=== PATIENT | female | born 1975 | race Two or more races ===

== ENCOUNTER → 2018-02-17 | Outpatient (REF) ==
[2018-02-17 18:38] LABS: HCG, SERUM QUANTITATIVE < 1.0 MIU/ML
== END ==
LOC: M LAB REF 17:44
DX: N97.9 Female infertility, unspecified (principal)

== ENCOUNTER 2018-08-04 22:57 | Emergency (ER) | payer OTHER ==
[2018-08-05] MEDS: METOCLOPRAMIDE INJ 10MG/2ML VIAL (J2765) IV ×2 (00:08)
[2018-08-05] MEDS: diphenhydrAMINE INJ 50MG/ML VIAL (J1200) IV ×2 (00:08)
[2018-08-05] MEDS: NS 1,000 ML IV ×2 (00:08)
[2018-08-05] MEDS: KETOROLAC 30 MG/ML VIAL (J1885) IV ×2 (00:08)
== END 2018-08-05 02:41 | disposition home or self-care (01) ==
LOC: M ED 22:57
DX: G43.909 Migraine, unspecified, not intractable, without status migrainosus (principal)
CPT/HCPCS: J1200

== ENCOUNTER → 2018-11-10 | Outpatient (CLI) | payer OTHER ==
[2018-11-13 08:54] LABS: CONTROL LINE HPYORI INT CTR LINE PRESENT; H PYLORI QUALITATIVE IgG NEGATIVE (NEGATIVE)
[2018-11-14 08:06] LABS: IGASUB3 34.4 mg/dL (13.4-97.9); IgA SERUM (part of Subclasses) 145 mg/dL (87-352)
[2018-11-14 08:06] LABS: TISSUE TRANSGLUTAMINASE IgA <2 U/mL (0-3)
== END ==
LOC: M LAB 14:50
DX: K62.5 Hemorrhage of anus and rectum (principal)
CPT/HCPCS: 82784

== ENCOUNTER 2018-12-15 06:52 | Day surgery (SDC) | payer OTHER ==
[~2018-12-15] VITALS: Ht 165.1 cm; Wt 78.0 kg
[~2018-12-15 06:52] MED LIST: D 50CAP PO; FLON1SPR; NS 1,000 ML IV ONE; PANT40TA3 PO; PROZ20CA11 PO; VITMTA PO; ZYRT10CA5 PO
[2018-12-15] MEDS ORDERED: LIDOCAINE 2% INJ 100 MG/5 ML SDV (FOR ANES.) As Ordered ONE (07:03)
[2018-12-15] MEDS ORDERED: PROPOFOL 200 MG/20 ML VIAL As Ordered ONE ×2 (07:03→09:10)
--- NOTE | 2018-12-15 09:02 | ROOR ---
Patient Name: Lali Alvarenga Procedure Date: 12/15/2018 8:28 AM Date of : 1975 Age: 43 Room: [facility] Gender: Female Note Status: Finalized Procedure: Colonoscopy Indications: Hematochezia Providers: Ed Scherer MD Referring MD: FILIBERTO DE LOS SANTOS MD Requesting Provider: Medicines: Monitored Anesthesia Care Complications: No immediate complications. Procedure: Pre-Anesthesia Assessment: - Prior to the procedure, a History and Physical was performed, and patient medications and allergies were reviewed. The patient is competent. The risks and benefits of the procedure and the sedation options and risks were discussed with the patient. All questions were answered and informed consent was obtained. Patient identification and proposed procedure were verified by the physician, the nurse and the anesthesiologist in the procedure room. Mental Status Examination: alert and oriented. Airway Examination: normal oropharyngeal airway and neck mobility. Respiratory Examination: clear to auscultation. CV Examination: normal. Prophylactic Antibiotics: The patient does not require prophylactic antibiotics. Prior Anticoagulants: The patient has taken no previous anticoagulant or antiplatelet agents. ASA Grade Assessment: II - A patient with mild systemic disease. After reviewing the risks and benefits, the patient was deemed in satisfactory condition to undergo the procedure. The anesthesia plan was to use monitored anesthesia care (MAC). Immediately prior to administration of medications, the patient was re-assessed for adequacy to receive sedatives. The heart rate, respiratory rate, oxygen saturations, blood pressure, adequacy of pulmonary ventilation, and response to care were monitored throughout the procedure. The physical status of the patient was re-assessed after the procedure. The Colonoscope was introduced through the anus and advanced to the terminal ileum, with identification of the appendiceal orifice and IC valve. The colonoscopy was performed without difficulty. The patient tolerated the procedure well. The quality of the bowel preparation was good. The terminal ileum, ileocecal valve, appendiceal orifice, and rectum were photographed. Scope insertion time was 3 minutes. Scope withdrawal time was 9 minutes. The total duration of the procedure was 12 minutes. Findings: The perianal and digital rectal examinations were normal. The terminal ileum appeared normal. Non-bleeding external and internal hemorrhoids were found during retroflexion. The hemorrhoids were medium-sized. The exam was otherwise without abnormality on direct and retroflexion views. Impression: - The examined portion of the ileum was normal. - Non-bleeding external and internal hemorrhoids. - The examination was otherwise normal on direct and retroflexion views. - No specimens collected. Recommendation: - Patient has a contact number available for emergencies. The signs and symptoms of potential delayed complications were discussed with the patient. Return to normal activities tomorrow. Written discharge instructions were provided to the patient. - Resume previous diet. - Continue present medications. - Repeat colonoscopy at age 52 for screening purposes. - Prior Labs for H. pylori infection and Celiac disease were negative. - Telephone GI clinic if symptomatic in 2 months. - Return to primary care physician. Ed Scherer MD Ed Scherer MD 12/15/2018 9:02:20 AM This report has been signed electronically. Number of Addenda: 0 Note Initiated On: 12/15/2018 8:28 AM Estimated Blood Loss: Estimated blood loss: none.
[2018-12-15 09:24] VITALS: BP 120/78
== END 2018-12-15 09:26 | disposition home or self-care (01) ==
LOC: M OPP 06:52
PROVIDERS: ATTEND Internal Medicine Gastroenterology
DX: K64.4 Residual hemorrhoidal skin tags (principal); K64.8 Other hemorrhoids; Z79.899 Other long term (current) drug therapy; Z91.048 Other nonmedicinal substance allergy status